=== PATIENT | female | born 1985 | race Caucasian/White ===

== ENCOUNTER 2020-04-13 00:10 | Emergency (ER) | payer OTHER, SELFPAY ==
[2020-04-13 00:17] VITALS: BP 156/98; PULSE 95; RESP 17; TEMP 36.6; O2SAT 97; BMI 34.9
--- NOTE | 2020-04-13 00:22 | W.ED.BACK ---
HPI - Back Pain/Injury General: Chief Complaint: Back Pain/Injury Stated Complaint: back pain Time Seen by Provider: 04/13/20 00:20 History of Present Illness: HPI Narrative: Patient is a 34-year-old female who comes to the ED with lower back pain. Patient states that approximately a week ago she was moving some furniture around and that is what started the lower back pain. She is trying to ice it and take [id number] pain relievers like Tylenol and ibuprofen and she is having little improvement. She states the pain is in the left lower part of the back and she feels some of the pain radiating down into her left leg. She rates the pain an 8 out of 10. Denies any bladder or bowel incontinence, numbness/tingling or weakness to the extremities or pelvic anesthesia. Associated symptoms: Deny abdominal pain, chills, dysuria, fatigue, fever(s), hematuria, nausea or vomiting Review of Systems Const: Denies: fever(s), chills or fatigue Eyes: Denies: change in vision or eye discomfort ENMT: Denies: throat pain, odynophagia, nasal discharge or nasal congestion Card: Denies: chest pain, palpitations, edema, swelling of feet/ankles, dyspnea on exertion or orthopnea Resp: Denies: dyspnea, productive cough or non-productive cough GI: Denies: abdominal pain, nausea, vomiting, diarrhea, constipation or hematochezia : Denies: flank pain, dysuria or hematuria Musc: Reports: back pain; Denies: neck pain or extremity swelling Skin/Breast: Denies: rash or new lesions Neuro: Denies: headache(s), numbness in extremities or weakness in extremities [facility] ED Female Reproductive History: Date of last menstrual period: 03/27/20 Physical Exam Const: COMMON NORMALS: no acute distress, patient oriented x3 and alert GENERAL APPEARANCE: cooperative; not comfortable (Patient appears uncomfortable due to lower back pain.) HENMT: COMMON NORMALS: normocephalic HEAD & SCALP: normocephalic MOUTH: Normal oral and palatal mucosa present THROAT: posterior oropharynx normal and uvula midline Neck/C-Spine: COMMON NORMALS: supple GENERAL: Yes normal visual inspection Resp: COMMON NORMALS: normal respiratory effort, No retractions, No use of accessory muscles and clear to auscultation bilaterally AUSCULTATION: clear to auscultation bilaterally Cardio: COMMON NORMALS: regular rate, regular rhythm, S1 normal heart sound present, S2 normal heart sound present, No gallops present (Cardio), No clicks present (Cardio), No murmurs present (Cardio) and Peripheral pulses 2+ throughout RATE: regular rate RHYTHM: regular rhythm HEART SOUNDS: S1 normal heart sound present and S2 normal heart sound present PERIPHERAL PULSES: Peripheral pulses 2+ throughout GI: COMMON NORMALS: Normal to inspection, nondistended, normoactive bowel sounds present, Soft to palpation, non-tender and no masses PALPATION: Yes Soft to palpation : COMMON NORMALS: Yes no CVA tenderness BLADDER/KIDNEY EXAM: Yes no CVA tenderness Back/Pelvis: COMMON NORMALS: no CVA tenderness LUMBAR SPINE/LOWER BACK: No lumbar spinal tenderness, Yes paraspinal muscle tenderness and Yes straight leg raise positive left Extremity: COMMON NORMALS: normal to inspection and no pedal edema Neuro: COMMON NORMALS: patient oriented x3 and moves all extremities SENSORIUM/ORIENTATION: Yes alert Skin: COMMON NORMALS: no rashes or lesions noted GENERAL SKIN EXAM: no rashes or lesions noted and dry skin Course Vital Signs: Vital signs: Vital Signs Temperature 97.8 F 04/13/20 00:17 Pulse Rate 95 04/13/20 00:17 Respiratory Rate 18 04/13/20 00:25 Blood Pressure 156/98 04/13/20 00:17 Pulse Oximetry 97 04/13/20 00:17 MDM - Back Pain/Injury MDM Narrative: Medical decision making narrative: Patient is a 34-year-old female who comes to the ED with lower back pain. She says pain radiates down into her left leg. She denies any bladder or bowel incontinence, weakness numbness or tingling to extremities or pelvic anesthesia. Patient was given a dose of Norflex, Toradol and prednisone while here in the ED. Patient was sent home with a prescription for 800 mg of ibuprofen, prednisone and Robaxin. Patient told to rest, ice and/or heat on back daily to help with symptoms. Stretch and massage back muscle daily. Follow-up with PCP in 7 to 10 days for reevaluation. Turn to ED if symptoms worsen. Patient understood and agreed with plan. Discharge Plan Discharge Patient Disposition: Home, Self-Care Clinical Impression: Lumbar radiculopathy Condition: Stable Prescriptions: New prednisone 20 mg tablet 20 mg PO TID 5 Days Qty: 15 RF: 0 methocarbamol 750 mg tablet 750 mg PO Q8H Qty: 30 RF: 0 ibuprofen 800 mg tablet 800 mg PO Q8H Qty: 30 RF: 0 Discharge Orders: Discharge Order (Routine); Ordered 04/13/20 Ordered By: Alexander Hubbard Referrals: Bert Crawford [Primary Care Provider] - Discharge Diet: Regular Discharge Activity: Increase activity as tolerated Patient Instructions: Lumbar Radiculopathy (ED) Activity Restrictions/Additional Instructions: Follow-up with medical provider as directed in 7-10 days. Take medications as prescribed. I am sending you home with a prescription for methocarbamol which is muscle relaxer and can cause some drowsiness so take at night before bed. You can take it during the day but use with caution since it may make you drowsy. Rest and apply ice and/or heat on back to help with symptoms. Stretch and massage lower back muscle daily. Return to the ER or your medical provider if condition worsens. Please read and understand discharge instructions. If any questions, please ask. Coding Level of Care Code ED Lip Cutter for Esperanza Fwd Exam Comprehensive
[2020-04-13 00:25] VITALS: RESP 18
[2020-04-13] MEDS: orphenadrine 30 mg/mL Inj 2 mL 60 MG IM (00:39)
[2020-04-13] MEDS: ketorolac 60 mg/2 mL INJ IM (00:40)
[2020-04-13] MEDS: predniSONE 20 mg Tablet 60 MG PO (00:42)
[2020-04-13 00:53] VITALS: BP 138/95; PULSE 81; RESP 16; O2SAT 98
== END 2020-04-13 00:56 | disposition home or self-care (01) ==
PROVIDERS: Emergency Provider Physician Assistant; PCP Physician Assistant Medical
DX: M54.16 Radiculopathy, lumbar region (principal)
CPT/HCPCS: 12345; 96372; 99281; 99283; J1885; J2360; J7512

== ENCOUNTER 2021-12-13 03:17 | Emergency (ER) | payer MEDICAID, SELFPAY ==
[2021-12-13 03:18] VITALS: BP 165/112; PULSE 100; RESP 16; TEMP 36.6; O2SAT 97; BMI 39.5
[2021-12-13 03:31] VITALS: BP 161/112; PULSE 102; RESP 15; O2SAT 96
--- NOTE | 2021-12-13 03:36 | ED_ITS ---
HPI - Alcohol General: Chief Complaint: Alcohol Stated Complaint: ETOH Time Seen by Provider: 12/13/21 03:28 Source: patient and EMS Mode of arrival: EMS Limitations: no limitations History of Present Illness: 36-year-old female states that she was at a bar tonight in [facility] states she had drank a 12 pack and 6 tequila shots. She states that she became very emotional and went into the bathroom and was crying in the bathroom floor. Police was called and told her that she was either getting go to long term or go to hospital. She denies any suicidality or homicidality. She states that I am just drunk and I want to go to sleep. Associated symptoms: Deny abdominal pain, depression, nausea or vomiting Review of Systems Const: Denies: fever(s), chills, body aches or change in appetite Eyes: Denies: blurry vision or eye discomfort ENMT: Denies: throat pain or dental pain Card: Denies: chest pain Resp: Denies: dyspnea GI: Denies: abdominal pain, nausea, vomiting or diarrhea : Denies: dysuria Musc: Denies: neck pain or back pain Skin/Breast: Denies: rash Neuro: Denies: headache(s) Psych: Denies: depression John/Lymph: Denies: easy bruising All/Imm: Denies: urticaria [facility] ED Female Reproductive History: Date of last menstrual period: 03/27/20 Physical Exam Const: COMMON NORMALS: no acute distress and patient oriented x3 GENERAL APPEARANCE: odor of alcohol detected HENMT: COMMON NORMALS: normocephalic and atraumatic HEAD & SCALP: normocephalic and atraumatic Eye: COMMON NORMALS: Equal, round and reactive pupils present and EOMs intact bilaterally PUPIL: Yes Equal, round and reactive pupils present Neck/C-Spine: COMMON NORMALS: full ROM and supple Chest: COMMONS NORMALS: normal inspection of the chest and normal palpation of entire chest wall Resp: COMMON NORMALS: normal respiratory effort, No retractions, No use of accessory muscles and clear to auscultation bilaterally AUSCULTATION: clear to auscultation bilaterally Cardio: COMMON NORMALS: regular rate, regular rhythm and No murmurs present (Cardio) RATE: regular rate RHYTHM: regular rhythm GI: COMMON NORMALS: Normal to inspection, nondistended, normoactive bowel sounds present, Soft to palpation, non-tender and no masses PALPATION: Yes Soft to palpation Extremity: COMMON NORMALS: normal to inspection and full ROM Neuro: COMMON NORMALS: patient oriented x3, moves all extremities and no focal motor deficits Psych: COMMON NORMALS: mental status grossly normal, Normal thought process present and cooperative THOUGHT PROCESS: Normal thought process present Skin: COMMON NORMALS: no rashes or lesions noted and no wounds GENERAL SKIN EXAM: no rashes or lesions noted Course Vital Signs: Vital signs: Vital Signs Temperature 97.9 F 12/13/21 03:18 Pulse Rate 102 H 12/13/21 03:31 Respiratory Rate 15 12/13/21 03:31 Blood Pressure 161/112 12/13/21 03:31 Pulse Oximetry 96 12/13/21 03:31 [facility] - Alcohol Medical Decision Making Patient presents her alcohol intoxication she is not suicidal or homicidal patient has a ride here to take her home she is answering all my questions appropriately is amatory stable for discharge. Discharge Plan Discharge Patient Disposition: Home Clinical Impression: Alcoholic intoxication Condition: Stable Prescriptions: No Action methocarbamol 750 mg tablet 750 mg PO Q8H Qty: 30 0RF ibuprofen 800 mg tablet 800 mg PO Q8H Qty: 30 0RF Discharge Orders: Discharge ED (Routine); Ordered 12/13/21 Ordered By: Justice Oneill Referrals: Bert Crawford [Primary Care Provider] - Discharge Diet: Advance as tolerated Discharge Activity: Resume usual activity Patient Instructions: Alcohol Intoxication (ED) Coding Level of Care Code ED Forensic Identification Specialist for Chg Fwd Exam Comprehensive
[2021-12-13 05:23] VITALS: PULSE 88; RESP 16; O2SAT 98
== END 2021-12-13 05:25 | disposition home or self-care (01) ==
PROVIDERS: Emergency Provider Emergency Medicine; PCP Physician Assistant Medical
DX: F10.129 Alcohol abuse with intoxication, unspecified (principal)
CPT/HCPCS: 99281

== ENCOUNTER 2024-12-22 11:02 | Emergency (ER) | payer BC, MEDICAID, SELFPAY ==
[2024-12-22 11:10] VITALS: BP 176/108; PULSE 74; RESP 18; TEMP 36.7; O2SAT 100; BMI 25.8
--- NOTE | 2024-12-22 11:19 | ECG_ITS ---
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
--- NOTE | 2024-12-22 11:24 | CT_ITS ---
WS: [id number] CT ABDOMEN AND PELVIS WITH CONTRAST HISTORY: abd pain, RIGHT lower quadrant pain for 2 days. TECHNIQUE: Imaging performed of the abdomen and pelvis with IV contrast. Multi phase imaging of the abdomen. Coronal and sagittal reformats are submitted. All CT scans at [facility] use at least one of these dose optimization techniques: automated exposure control; mA and/or kV adjustment per patient size (includes targeted exams where dose is matched to clinical indication); or iterative reconstruction. IV CONTRAST: Omnipaque 350; 100 mL IV. Oral contrast: No DLP: 626.61 mGy.cm COMPARISON: None available. Lower thorax: RIGHT fissural nodule 3 mm. Heart is normal size. Small hiatal hernia. Surgical clips at the GE junction. Liver/biliary system: Mildly enlarged liver with heterogeneity. No intrahepatic duct dilatation. The portal venous phase of the liver parenchyma becomes homogeneous. No mass identified. Normal portal vein. Gallbladder: Prior cholecystectomy. Pancreas: Normal size pancreas and pancreatic duct. No adjacent inflammation. Spleen: Normal size spleen. No mass or infarct. Adrenal glands: Normal. Right kidney: Normal. Left kidney: No renal obstruction. 2 cysts with the largest measuring 11 mm. Aorta: Atherosclerotic plaque throughout the aorta. No aneurysm. Mesenteric arteries are normally enhancing. Lymphadenopathy: None. Free fluid: None. GI tract: Prior gastric bypass. No GI tract obstruction. No colitis. No appendicitis. Abdominal wall: Fat containing umbilical hernia. Pelvis: Normal position of the uterus. No free fluid. Bones: Unremarkable. CT/CT abdomen pelvis w con* [id number] IMPRESSION: 1. No acute abdominal or pelvic abnormalities identified. 2. Status post gastric bypass. 3. Enlarged mildly heterogeneous liver. No mass. 4. LEFT renal cyst. 5. No free fluid or free air. 6. No GI tract obstruction. No appendicitis. 7. Prior cholecystectomy.
--- NOTE | 2024-12-22 11:24 | XR_ITS ---
WS: [id number] XR chest 1V portable [id number] REASON FOR EXAM: weakness FINDINGS: The heart and the mediastinum are within normal limits. Calcified granulomatous disease in both hemithoraces. No acute pulmonary parenchymal or pleural abnormality. The bony thorax is intact with no significant focal abnormality. XR/XR chest 1V portable [id number] IMPRESSION: No acute chest abnormality.
--- NOTE | 2024-12-22 11:25 | ED_ITS ---
HPI - Weakness 2 General: Chief complaint: Weakness Stated complaint: weakness, dizzy, lightheaded Time Seen by Provider: 12/22/24 11:04 Source: patient Mode of arrival: ambulatory Limitations: no limitations History of Present Illness: 39-year-old female has a history of trang quan bypass last January. She states that over the last 2 weeks she been having some increased weakness states she has been having some increased diarrhea and feeling like she is dehydrated states she has had some decreased urination as well and just generalized fatigue. States she has had some diffuse abdominal pain worse epigastric started today her she rates her pain a 5 out of 10 she denies any fever denies any blood in her stool denies any vomiting. Associated symptoms: Denies chest pain, chills, dysuria, fever(s), headache(s), nausea or vomiting Review of Systems 2 Const: Reports: fatigue; Denies: fever(s), chills, body aches or change in appetite ENMT: Denies: throat pain or dental pain Card: Denies: chest pain Resp: Denies: dyspnea GI: Reports: abdominal pain and diarrhea; Denies: nausea or vomiting : Denies: dysuria Musc: Denies: neck pain or back pain Skin/Breast: Denies: rash Neuro: Denies: headache(s) All/Imm: Denies: urticaria Physical Exam 2 Const: COMMON NORMALS: no acute distress, patient oriented x3 and healthy appearing HENMT: COMMON NORMALS: normocephalic and atraumatic HEAD & SCALP: n ormocephalic and atraumatic Neck/C-Spine: COMMON NORMALS: full ROM and supple Chest: COMMONS NORMALS: normal inspection of the chest Resp: COMMON NORMALS: normal respiratory effort, No retractions, No use of accessory muscles and clear to auscultation bilaterally AUSCULTATION: clear to auscultation bilaterally Cardio: COMMON NORMALS: regular rate, regular rhythm and No murmurs present (Cardio) RATE: regular rate RHYTHM: regular rhythm GI: COMMON NORMALS: Normal to inspection, nondistended, normoactive bowel sounds present, Soft to palpation, non-tender and no masses PALPATION: Yes Soft to palpation Extremity: COMMON NORMALS: normal to inspection and full ROM Neuro: COMMON NORMALS: patient oriented x3, moves all extremities and no focal motor deficits Psych: COMMON NORMALS: mental status grossly normal, Normal thought process present and cooperative THOUGHT PROCESS: Normal thought process present Skin: COMMON NORMALS: no rashes or lesions noted and no wounds GENERAL SKIN EXAM: no rashes or lesions noted Course 2 Vital Signs: Vital signs: Vital Signs Temperature 98.0 F 12/22/24 11:10 Pulse Rate 74 12/22/24 11:10 Respiratory Rate 16 12/22/24 11:47 Blood Pressure 176/108 12/22/24 11:10 Pulse Oximetry 100 12/22/24 11:10 Oxygen Delivery Me thod Room Air 12/22/24 11:10 MDM - Weakness Medical Decision Making Patient presents here with weakness nausea abdominal pain she was found to have a UTI CT was otherwise normal blood work was normal she feels improved here we will prescribe her nausea medicine and antibiotics she is follow-up with her gastric surgeon return if worsening she understands agrees to plan Medical Records I reviewed the patient's medical records. Lab Data I reviewed the patient's lab results. 12/22/24 11:23 12/22/24 11:23 Radiology Impressions Abdomen/Pelvis CT 12/22/24 11:24 IMPRESSION: 1. No acute abdominal or pelvic abnormalities identified. 2. Status post gastric bypass. 3. Enlarged mildly heterogeneous liver. No mass. 4. LEFT renal cyst. 5. No free fluid or free air. 6. No GI tract obstruction. No appendicitis. 7. Prior cholecystectomy. Chest X-Ray 12/22/24 11:24 IMPRESSION: No acute chest abnormality. Laboratory Results WBC 9.71 10^3/uL (3.29-11.43) 12/22/24 11:23 RBC 5.05 10^6/uL (3.85-5.65) 12/22/24 11:23 Hgb 13.50 g/dL (11.27-16.99) 12/22/24 11:23 Hct 42.2 % (36-47) 12/22/24 11:23 MCV 83.6 fl (85-98) L 12/22/24 11:23 MCH 26.7 pg (27-33) L 12/22/24 11:23 MCHC 32.0 g/dL (30-55) 12/22/24 11:23 RDW 15.3 % (12.1-15.1) H 12/22/24 11:23 Plt Count 217 10^3/cmm (157-399) 12/22/24 11:23 MPV 11.7 fL (7.4-10.4) H 12/22/24 11:23 Neut % (Auto) 55.9 % 12/22/24 11:23 Lymph % (Auto) 34.6 % 12/22/24 11:23 [facility] % (Auto) 6.0 % 12/22/24 11:23 Eos % (Auto) 2.4 % 12/22/24 11:23 Baso % (Auto) 0.9 % 12/22/24 11:23 Neut # (Auto) 5.43 10^3/uL (1.8-7.7) 12/22/24 11:23 Lymph # (Auto) 3.4 10^3/uL (0.8-4.8) 12/22/24 11:23 [place] # (Auto) 0.6 10^3/uL (0.2-0.9) 12/22/24 11:23 Eos # (Auto) 0.2 10^3/uL (0.0-0.8) 12/22/24 11:23 Baso # (Auto) 0.1 10^3/uL (0.0-0.1) 12/22/24 11:23 Nucleated RBC % (auto) 0 % 12/22/24 11:23 Nucleated RBCs # 0.0 /100WBC 12/22/24 11:23 Sodium 139 mmol/L (136-145) 12/22/24 11:23 Potassium 4.4 mmol/L (3.5-5.1) 12/22/24 11:23 Chloride 106 mmol/L (98-107) 12/22/24 11:23 Carbon Dioxide 23 mmol/L (22-29) 12/22/24 11:23 Anion Gap 14.4 (5-19) 12/22/24 11:23 BUN 10 mg/dL (6-20) 12/22/24 11:23 Creatinine 0.7 mg/dL (0.5-0.9) 12/22/24 11:23 GFR Calculation 92.2 mL/min (90-130) 12/22/24 11:23 Glucose 90 mg/dL (65-115) 12/22/24 11:23 Calculated Osmolality 287 mOsm/kg (285-295) 12/22/24 11:23 Calcium 8.7 mg/dL (8.5-10.5) 12/22/24 11:23 Magnesium 2.1 mg/dL (1.7-2.3) 12/22/24 11:23 Total Bilirubin 0.4 mg/dL (0.15-1.2) 12/22/24 11:23 AST 18 U/L (0-32) 12/22/24 11:23 ALT 13 U/L (0-33) 12/22/24 11:23 Alkaline Phosphatase 90 U/L (35-105) 12/22/24 11:23 Total Protein 6.7 g/dL (6.6-8.7) 12/22/24 11:23 Albumin 4.1 g/dL (3.5-5.2) 12/22/24 11:23 Globulin 2.6 g/dL (1.3-4.6) 12/22/24 11:23 Lipase 27 U/L (13-60) 12/22/24 11:23 TSH 0.98 uIU/mL (0.27-4.20) 12/22/24 11:23 Urine Color Yellow (Yellow) 12/22/24 12:40 Urine Appearance Cloudy (CLEAR) A 12/22/24 12:40 Urine pH 6.5 (5-7) 12/22/24 12:40 Ur Specific [place] 1.010 (1.005-1.030) 12/22/24 12:40 Urine Protein Neg (Negative) 12/22/24 12:40 Urine Glucose (UA) Norm (Normal) 12/22/24 12:40 Urine Ketones Negative (Negative) 12/22/24 12:40 Urine Blood 2+ (Negative) H 12/22/24 12:40 Urine Nitrate Positive (Negative) A 12/22/24 12:40 Urine Bilirubin Neg (Negative) 12/22/24 12:40 Urine Urobilinogen 1 mg/dL (Negative) H 12/22/24 12:40 Ur Leukocyte Esterase Negative (Negative) 12/22/24 12:40 Urine RBC 0-4 /hpf (0-2) H 12/22/24 12:40 Urine WBC 0-4 /hpf (0-5) H 12/22/24 12:40 Ur Squamous Epith Cells 0-4 /hpf (0-5) H 12/22/24 12:40 Amorphous Sediment Not Reportable 12/22/24 12:40 Urine Bacteria 4+ /hpf (NONE) H 12/22/24 12:40 All radiology interpretation(s) finalized by discharge EKG Data EKG 1: I personally reviewed and interpreted this EKG as follows: EKG interpretation date: 12/22/24 EKG interpretation time: 11:40 Interpretation: nsr hr [address] elevation qrs 93 qtc 396 Discharge Plan Discharge Patient Disposition: Home Clinical Impression: Acute cystitis Qualifiers: Hematuria presence: without hematuria Qualified Code(s): N30.00 - Acute cystitis without hematuria Condition: Stable Prescriptions: New cephalexin 500 mg capsule 500 mg PO TID 7 Days Qty: 21 0RF ondansetron 4 mg tablet,disintegrating 4 mg PO Q6H PRN (Reason: nausea and vomiting) Qty: 14 0RF No Action cyclobenzaprine 10 mg tablet 10 mg PO TID PRN (Reason: Muscle Spasm) sucralfate 1 gram tablet 1 g PO QID omeprazole 40 mg capsule,delayed release(DR/EC) 40 mg PO BID escitalopram oxalate 20 mg tablet 20 mg PO DAILY Discharge Orders: Discharge ED (Routine); Ordered 12/22/24 Ordered By: Justice Oneill Referrals: Dayna Grimes NP [Primary Care Provider] - 4-7 days Discharge Diet: Advance as tolerated Discharge Activity: Resume usual activity Patient Instructions: Urinary Tract Infection in Women (ED) Print Language: Romansh Coding Level of Care Code ED Icing Coater for Chg Fwd Related Data Home Medications ?Medication ?Instructions ?Recorded ?Confirmed cyclobenzaprine 10 mg tablet 10 mg PO TID PRN Muscle S pasm 12/22/24 12/22/24 escitalopram oxalate 20 mg tablet 20 mg PO DAILY 12/2212/22/24 omeprazole 40 mg capsule,delayed 40 mg PO BID 12/22/24 12/22/24 release sucralfate 1 gram tablet 1 g PO QID 12/22/24 12/22/24 Previous Rx's ?Medication ?Instructions ?Recorded cephalexin 500 mg capsule 500 mg PO TID 7 days #21 cap s 12/22/24 ondansetron 4 mg disintegrating 4 mg PO Q6H PRN nausea and 12/22/24 tablet vomiting #14 tabs Allergies Allergy/AdvReac Type Severity Reaction Status Date / Time Sulfa (Sulfonamide Allergy Mild ALGY-Redness Verified 04/13/20 00:32 Antibiotics) of Skin
[2024-12-22 11:32] LABS: Basophils # 0.1 10^3/uL (0.0-0.1); Basophils % 0.9 %; Eosinophils # 0.2 10^3/uL (0.0-0.8); Eosinophils % 2.4 %; Hematocrit 42.2 % (36-47); Lymphocytes # 3.4 10^3/uL (0.8-4.8); Lymphocytes % 34.6 %; Mean Corpuscular Hemoglobin 26.7 pg (27-33); Mean Corpuscular Volume 83.6 fl (85-98); Mean Platelet Volume 11.7 fL (7.4-10.4); Monocytes # 0.6 10^3/uL (0.2-0.9); Neutrophils # 5.43 10^3/uL (1.8-7.7); Neutrophils % 55.9 %; Nucleated Red Blood Cells % 0 %; Platelet Count 217 10^3/cmm (157-399); Red Blood Count 5.05 10^6/uL (3.85-5.65); Red Cell Distribution Width 15.3 % (12.1-15.1); White Blood Count 9.71 10^3/uL (3.29-11.43)
[2024-12-22] MEDS: ondansetron 2 mg/ML SDV 2 mL 4 MG IVP (11:45)
[2024-12-22 11:47] VITALS: RESP 16
[2024-12-22] MEDS: morphine 4 mg/mL SDV 1 mL IVP (11:47)
[2024-12-22] MEDS: sodium chloride 0.9% 1,000 ML 999 ML IV (11:49)
[2024-12-22 11:58] LABS: Alanine Aminotransferase 13 U/L (0-33); Albumin Level 4.1 g/dL (3.5-5.2); Alkaline Phosphatase 90 U/L (35-105); Anion Gap 14.4 (5-19); Aspartate Amino Transferase 18 U/L (0-32); Blood Urea Nitrogen 10 mg/dL (6-20); Calcium 8.7 mg/dL (8.5-10.5); Carbon Dioxide 23 mmol/L (22-29); Chloride 106 mmol/L (98-107); Creatinine Clr Calc Pharmacy 115.5132; Globulin 2.6 g/dL (1.3-4.6); Glomerular Filtration Rate 92.2 mL/min (90-130); Glucose 90 mg/dL (65-115); Lipase 27 U/L (13-60); Magnesium 2.1 mg/dL (1.7-2.3); Osmolality Calculated 287 mOsm/kg (285-295); Potassium 4.4 mmol/L (3.5-5.1); Sodium 139 mmol/L (136-145); Thyroid Stimulating Hormone 0.98 uIU/mL (0.27-4.20); Total Bilirubin 0.4 mg/dL (0.15-1.2); Total Protein 6.7 g/dL (6.6-8.7)
[2024-12-22] MEDS: iohexol 350 mg/mL 500 mL Btl (per mL) IV ×2 (12:39→13:22)
[2024-12-22 13:30] LABS: Bilirubin Urine Neg (Negative); Blood Urine 2+ (Negative); Glucose Urine UA Norm (Normal); Ketones Urine Negative (Negative); Nitrate Urine Positive (Negative); Protein Urine Neg (Negative); Urine Appearance Cloudy (CLEAR); Urine Color Yellow (Yellow); Urobilinogen Urine 1 mg/dL (Negative); pH Urine 6.5 (5-7)
[2024-12-22 13:31] LABS: Add Urine Culture? Yes; Add Urine Microscopic? YES; Bacteria Urine 4+ /hpf; Leukocyte Esterase Urine Negative (Negative); RBC Urine 0-4 /hpf (0-2); Squamous Epithelial Cell Urine 0-4 /hpf (0-5); UA Manual Slide Review YES; UA Slide Review UA Slide Review Perf; WBC Urine 0-4 /hpf (0-5)
[2024-12-22] MEDS: cefTRIAXone 1,000 mg SDV 1000 MG IVP (14:15)
[2024-12-22 14:16] VITALS: BP 157/101; PULSE 80; O2SAT 97
== END 2024-12-22 14:17 | disposition home or self-care (01) ==
PROVIDERS: Emergency Provider Emergency Medicine; PCP Nurse Practitioner Family
DX: N30.00 Acute cystitis without hematuria (principal)
CPT/HCPCS: 36415; 71045; 74177; 80053; 81001; 83690; 83735; 84443; 85025; 87077; 87086; 87186; 93005; 96361; 96374; 96375; 99285; J0696; J2270; J2405; J7030

== ENCOUNTER 2025-05-11 08:34 | Oncology outpatient (recurring) (ONCR) | payer BC, MEDICAID, SELFPAY ==
[2025-05-11 09:04] VITALS: BP 146/76; PULSE 84; RESP 16; TEMP 36.7; O2SAT 95
[2025-05-11] MEDS: diphenhydrAMINE 50 mg/mL SDV 1mL 25 MG IVP (09:44)
[2025-05-11] MEDS: iron dextran 975 MG in sodium chloride 0.9% 1,000 ML 250.75 MG IV (11:43)
[2025-05-11 16:32] VITALS: BP 142/92; PULSE 73; RESP 16; TEMP 36.6; O2SAT 96
== END 2025-05-23 23:59 | disposition home or self-care (01) ==
PROVIDERS: PCP Nurse Practitioner Family; Visit Provider Internal Medicine Medical Oncology
DX: D50.9 Iron deficiency anemia, unspecified; Z79.899 Other long term (current) drug therapy; Z53.9 Procedure and treatment not carried out, unspecified reason
CPT/HCPCS: 96365; 96366; 96375; J1200; J1750; J7030; J7040; J9999

== ENCOUNTER 2025-06-08 15:49 | Outpatient (CLI) | payer BC, MEDICAID, SELFPAY ==
--- NOTE | 2025-06-08 15:55 | CT_ITS ---
WS: [id number] CT ABDOMEN AND PELVIS WITH CONTRAST HISTORY: BARIATRIC SURGERY STATUS TECHNIQUE: Imaging performed of the abdomen and pelvis with IV contrast. Single phase imaging of the abdomen. Coronal and sagittal reformats are submitted. All CT scans at [facility] use at least one of these dose optimization techniques: automated exposure control; mA and/or kV adjustment per patient size (includes targeted exams where dose is matched to clinical indication); or iterative reconstruction. IV CONTRAST: Omnipaque 350; 100 mL IV. Oral contrast: No DLP: 392.80 mGy.cm COMPARISON: 12/22/2024 Lower thorax: Lung bases are clear. Heart is normal size. No hiatal hernia. Liver/biliary system: Normal size with no intrahepatic dilatation. Gallbladder: Status post cholecystectomy. Pancreas: Normal size pancreas and pancreatic duct. No adjacent inflammation. Spleen: Normal size spleen. No mass or infarct. Adrenal glands: Normal. Right kidney: Normal. Left kidney: Normal size kidney. There are 2 cortical hypodensities in the mid kidney with the largest measuring 1.3 cm which are stable and consistent with cysts. Aorta: Mild atherosclerosis with no aneurysm. Lymphadenopathy: None. Free fluid: Small amount of physiologic free fluid in the RIGHT cul-de-sac. GI tract: Status post gastric bypass surgery. No obstruction of the stomach or small bowel. Normal distention of the colon. No colitis or ischemia. Abdominal wall: Tiny umbilical hernia. Pelvis: Tiny moderate free fluid in the RIGHT pelvis. Uterus is midline. Small follicle LEFT ovary. Bones: Sclerotic focus in the LEFT ilium is stable. CT/CT abdomen pelvis w con* [id number] IMPRESSION: 1. No acute abdominal or pelvic abnormalities. 2. Status post gastric bypass. 3. Status post cholecystectomy. 4. LEFT renal cyst x2. 5. No colitis or GI tract ischemia.
[2025-06-08] MEDS: iohexol 350 mg/mL 500 mL Btl (per mL) IV (16:12)
== END 2025-06-08 15:50 | disposition home or self-care (01) ==
LOC: RAD 15:50
PROVIDERS: PCP Nurse Practitioner Family; Visit Provider Nurse Practitioner Family
DX: Z98.84 Bariatric surgery status (principal)
CPT/HCPCS: 74177

== ENCOUNTER 2025-06-15 12:00 | Outpatient (CLI) | payer BC, MEDICAID, SELFPAY ==
--- NOTE | 2025-06-15 12:00 | MM_ITS ---
WS: [id number] BILATERAL 3D TOMOSYNTHESIS DIGITAL SCREENING MAMMOGRAPHY WITH CAD CLINICAL INFORMATION: SCREENING HISTORY: Screening mammogram. No current complaints. COMPARISON: Baseline TECHNIQUE: Bilateral CC and MLO views. FINDINGS: The breasts are composed of heterogeneous fibroglandular density tissue, which can limit the detection of small underlying mass lesions. No suspicious mass, asymmetry, calcifications, or architectural distortion. No evidence of malignancy. MM/MM scr tomosynthesis [id number] IMPRESSION: DENSITY: The breasts are heterogeneously dense, which may obscure small masses. BI-RADS: 1 - Negative FOLLOW UP: 1 Year Follow-up Recommend return to annual screening mammography.
== END 2025-06-15 12:01 | disposition home or self-care (01) ==
LOC: MOBLMAM 12:01
PROVIDERS: PCP Nurse Practitioner Family; Visit Provider Nurse Practitioner Family
DX: Z12.31 Encounter for screening mammogram for malignant neoplasm of breast (principal); R92.333 Mammographic heterogeneous density, bilateral breasts
CPT/HCPCS: 77063; 77067

== ENCOUNTER 2025-07-05 13:37 | Oncology outpatient (recurring) (ONCR) | payer BC, MEDICAID, SELFPAY ==
[2025-07-05 13:59] LABS: Hematocrit 45.3 % (36-47); Hemoglobin 15.00 g/dL (11.27-16.99); Mean Corpuscular HGB Conc 33.1 g/dL (30-55); Mean Corpuscular Hemoglobin 28.9 pg (27-33); Mean Corpuscular Volume 87.3 fl (85-98); Nucleated Red Blood Cells % 0 %; Platelet Count 189 10^3/cmm (157-399); Red Blood Count 5.19 10^6/uL (3.85-5.65); White Blood Count 9.05 10^3/uL (3.29-11.43)
[2025-07-05 14:24] LABS: Alanine Aminotransferase 18 U/L (0-33); Albumin Level 4.1 g/dL (3.5-5.2); Alkaline Phosphatase 88 U/L (35-105); Anion Gap 13.3 (5-19); Aspartate Amino Transferase 20 U/L (0-32); Blood Urea Nitrogen 12 mg/dL (6-20); Calcium 8.9 mg/dL (8.5-10.5); Carbon Dioxide 24 mmol/L (22-29); Chloride 104 mmol/L (98-107); Creatinine Clr Calc Pharmacy 135.2291; Globulin 2.4 g/dL (1.3-4.6); Glucose 115 mg/dL (65-115); Osmolality Calculated 285 mOsm/kg (285-295); Potassium 4.3 mmol/L (3.5-5.1); Sodium 137 mmol/L (136-145); Total Protein 6.5 g/dL (6.6-8.7)
== END 2025-07-23 23:59 | disposition home or self-care (01) ==
PROVIDERS: PCP Nurse Practitioner Family; Visit Provider Nurse Practitioner Family
DX: D50.9 Iron deficiency anemia, unspecified (principal)
CPT/HCPCS: 36415; 80053; 85025

== ENCOUNTER 2025-08-16 12:36 | Oncology outpatient (recurring) (ONCR) | payer BC, MEDICAID, SELFPAY ==
[2025-08-16 13:05] LABS: Hematocrit 44.6 % (36-47); Hemoglobin 15.30 g/dL (11.27-16.99); Mean Corpuscular HGB Conc 34.3 g/dL (30-55); Mean Corpuscular Hemoglobin 30.4 pg (27-33); Mean Corpuscular Volume 88.7 fl (85-98); Nucleated Red Blood Cells % 0 %; Platelet Count 192 10^3/cmm (157-399); Red Blood Count 5.03 10^6/uL (3.85-5.65); White Blood Count 9.32 10^3/uL (3.29-11.43)
[2025-08-16 13:31] LABS: Alanine Aminotransferase 15 U/L (0-33); Albumin Level 4.2 g/dL (3.5-5.2); Alkaline Phosphatase 84 U/L (35-105); Anion Gap 11.9 (5-19); Aspartate Amino Transferase 18 U/L (0-32); Blood Urea Nitrogen 16 mg/dL (6-20); Calcium 9.1 mg/dL (8.5-10.5); Carbon Dioxide 25 mmol/L (22-29); Chloride 103 mmol/L (98-107); Ferritin 81 ng/mL (15-150); Globulin 2.7 g/dL (1.3-4.6); Glucose 101 mg/dL (65-115); Iron 104 ug/dL (37-145); Osmolality Calculated 283 mOsm/kg (285-295); Potassium 3.9 mmol/L (3.5-5.1); Sodium 136 mmol/L (136-145); Total Iron Binding Capacity 243 mcg/dl; Total Protein 6.9 g/dL (6.6-8.7); Unsaturated Iron Binding 139 ug/dL (112-347)
== END 2025-08-22 23:59 | disposition home or self-care (01) ==
LOC: ONCMED 12:36
PROVIDERS: PCP Nurse Practitioner Family; Visit Provider Nurse Practitioner Family
DX: D50.9 Iron deficiency anemia, unspecified (principal)
CPT/HCPCS: 80053; 82728; 83540; 83550; 85025